=== PATIENT | male | born 1940 | race Caucasian/White ===

== ENCOUNTER 2016-05-07 08:05 | Day surgery (SDC) | payer OTHER ==
[2016-05-06 14:36] VITALS: BMI 29.8
[2016-05-07] MEDS ORDERED: PROPOFOL 20 ML ONE ×2 (08:51)
[2016-05-07 10:11] VITALS: TEMP 98.2
[2016-05-07 10:41] VITALS: PULSE 65
[2016-05-07 11:05] VITALS: BP 125/82
--- NOTE | 2016-05-08 12:36 | PATH ---
Surgical Pathology Report Patient Name: JOEY TORRES [facility]. Rec. #: [id number] /Age/Gender: 1940 (Age: 75) / M Account: [id number] Location: U-ENDOSCOPY Taken: 05/07/2016 Received: 05/07/2016 Reported: 05/08/2016 Physicians: Rosamaria Watters M.D. Specimen(s) Received POLYP TRANSVERSE COLON Clinical History Polyp surveillance Diverticulosis, colon polyp Final Diagnosis COLON, PROXIMAL TRANSVERSE, POLYPECTOMY: TUBULAR ADENOMA. Electronically Signed Tam Enciso M.D. Gross Description Received in formalin, labeled "polyps proximal transverse colon" are 3 rehman, irregular portions of soft tissue ranging from 0.1-0.3 cm. in greatest dimension. The specimens are submitted in toto in one cassette. 05/07/201605/07/2016
== END 2016-05-07 11:05 | disposition home or self-care (01) ==
LOC: JASU-ENDO 08:05
PROVIDERS: ATTEND Internal Medicine Gastroenterology
PROC: 0DBL8ZX Excision of Transverse Colon, Via Natural or Artificial Opening Endoscopic, Diagnostic (ICD-10-PCS; principal; 2016-05-07 09:00)
DX: Z12.11 Encounter for screening for malignant neoplasm of colon (principal); D12.3 Benign neoplasm of transverse colon; K57.30 Diverticulosis of large intestine without perforation or abscess without bleeding; K55.20 Angiodysplasia of colon without hemorrhage; K64.8 Other hemorrhoids; Z86.010 Personal history of colon polyps
CPT/HCPCS: 88305-TC